=== PATIENT | male | born 2000 | race Caucasian/White ===

== ENCOUNTER 2023-09-17 09:31 | Emergency (ER) | payer BC, SELFPAY ==
[2023-09-17 09:33] VITALS: BP 131/57
--- NOTE | 2023-09-17 10:57 | ED.GENMED ---
Addendum entered and electronically signed by Tegan Arnold PA-C 09/17/23 15:12:
Patient called today around 3 PM on 09/17/23 today in follow-up to today's visit. We did discuss possible short course of antibiotics to cover for potential infection considering delayed closure of the wound. However, he was discharged prior to
sending the antibiotic. I spoke to him on the phone and advised patient that I will start a short course of Keflex for 3 days. He is aware of plan. Prescription sent to his pharmacy.
Original Note:
History of Present Illness
<Tegan Arnold PA-C - Last Filed: 09/17/23 11:12>
General
Chief Complaint: Skin Surface Trauma
Source: patient
Exam Limitations: none
Time Seen by Provider: 09/17/23 09:36
Nursing documentation reviewed up to this point in time: agreed with
Travel History
Have you had any contact with someone who has COVID-19?: No
Do you have any symptoms of coronavirus? Fever > 100 degrees, chills, cough, shortness of breath, sore throat, loss of taste or smell, muscle aches, or headache?: No
History of Present Illness
History of Present Illness:
This is a 23-year-old male presenting emergency department today with a laceration above his right eyebrow. This injury occurred yesterday around 3 PM. 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
and subsequently hit heads with his opponent. Patient states that he initially felt fine but then one of his fellow coaches noticed he was bleeding. He states at the time of the injury, they placed Steri-Strips and cleaned out the wound
thoroughly. Patient did not originally present to the emergency department at the time because he thought that it would heal on its own, however his parents encouraged him to to come in today. Patient states that when he had his injury, he not lose
consciousness, and feels well now. He denies dizziness, lightheadedness, nausea, vomiting, changes to his vision, changes to his hearing, eye pain, eyebrow pain.
Past History
<Tegan Arnold PA-C - Last Filed: 09/17/23 11:12>
Past History
ED Past Medical History: None
ED Past Surgical History: None
Social History
Tobacco: Non-smoker
Alcohol: None
Drug: None
Review of Systems
<Tegan Arnold PA-C - Last Filed: 09/17/23 11:12>
Review of Systems
All Other Systems: ROS reviewed and negative except as documented in HPI and ROS
Phy Exam
<Tegan Arnold PA-C - Last Filed: 09/17/23 11:12>
Physical Exam
Physical Exam:
General: Patient is well-appearing in no acute distress.
Skin: There is a 1 cm laceration above the right eyebrow. It is not actively bleeding. There is a small area of ecchymosis on the right eyelid.
Head: No palpable hematomas on the scalp
Eyes: No conjunctival injection. Pupils equal round and reactive to light, no nystagmus.
Cardiac: regular rate
Pulm: normal respiratory effort
Musculoskeletal: no bony tenderness to palpation of the frontal bones, zygomatic bone.
Neuro: AAOx3. CN II-XII intact.
Course
<Tegan Arnold PA-C - Last Filed: 09/17/23 11:12>
Vital Signs
Initial and Last Documented VS:
Initial Vital Signs
Temp Pulse Resp BP Pulse Ox
98.5 F 54 16 131/57 100
09/17/23 09:33 09/17/23 09:33 09/17/23 09:33 09/17/23 09:33 09/17/23 09:33
Last Documented Vital Signs
Temp Pulse Resp BP Pulse Ox
98.5 F 54 16 131/57 100
09/17/23 09:33 09/17/23 09:33 09/17/23 09:33 09/17/23 09:33 09/17/23 09:33
<Pako Andrade DO - Last Filed: 09/17/23 11:14>
Vital Signs
Initial and Last Documented VS:
Initial Vital Signs
Temp Pulse Resp BP Pulse Ox
98.5 F 54 16 131/57 100
09/17/23 09:33 09/17/23 09:33 09/17/23 09:33 09/17/23 09:33 09/17/23 09:33
Last Documented Vital Signs
Temp Pulse Resp BP Pulse Ox
98.5 F 54 16 131/57 100
09/17/23 09:33 09/17/23 09:33 09/17/23 09:33 09/17/23 09:33 09/17/23 09:33
Procedures
<Tegan Arnold PA-C - Last Filed: 09/17/23 11:12>
Laceration Closure
Right Eye brow:
Status of Wound: clean
Size of Wound in cm: 1
Description of Wound Edges: sharp
Preparation: cleaned with saline
Revision/Debridement: routine- no revision
Wound exploration: explored to base- no FB
Type of Closure: single layer closure
Skin Closure Material: 5-0 prolene
Number of sutures: 2
Additional information:
Patient tolerated procedure well
<Tegan Arnold PA-C - Last Filed: 09/17/23 11:12>
MDM/Problems Addressed
Differential Diagnosis Includes:
Differentials include simple abrasion, laceration, hematoma, musculoskeletal sprain/strain, concussion
MDM/Problems Addressed:
eyebrow laceration
Chronic conditions affecting care:
n/a
Acute Exacerbation and/or Progression of Chronic Illness:
n/a
<Tegan Arnold PA-C - Last Filed: 09/17/23 11:12>
*Pulse Oximetry
Patient hypoxic: no
*Critical Care Note
Total Time (30-74mins, 75-104mins- exclusive of procedures): Not Applicable
Data Reviewed
Review of Other/Old Records Reveals: Records (Reviewed ER physician documentation from 09/08/2021, reviewed ER physician documentation from 07/06/2021)
Source: patient
<Tegan Arnold PA-C - Last Filed: 09/17/23 11:12>
Patient Management
Escalation/DeEscalation of care consider admission/obs:
23-year-old male presenting emergency department today with a laceration above his right eyebrow. This occurred when he hit his head on another wrestler's head. He denies any loss of consciousness, nausea, vomiting, dizziness, headache.
Unremarkable neurological exam. Imaging not indicated at this time. While the laceration occurred yesterday, the decision was made to close the wound with stitches for better cosmetic healing. Patient will follow-up with his primary care provider
to have the stitches removed. Patient medically stable for discharge at this time.
ED Attending Note
<Tegan Arnold PA-C - Last Filed: 09/17/23 11:12>
-
Portions of this chart may have been created with voice recognition software.� Occasional wrong word or��sound alike� substitutions may have occurred due to the inherent limitations of voice recognition software.
<Pako Andrade DO - Last Filed: 09/17/23 11:14>
ED Attending Note
Patient seen and examined by attending physician: Yes
I performed the substantive portion of visit, reviewed & personally made and approve the management plan that is documented in note by myself or ZORAIDA.: Yes
I performed a history and physical exam of patient and discussed management with resident, I reviewed resident's note and agree with documented findings and plan of care.: Yes
ED Attending Note:
I evaluated the patient at bedside. The patient does have a superficial laceration that does spread apart about 2 mm�for cosmetic reason, will repair. I did clean with saline. His tetanus status is up-to-date. No concerning neurologic
findings/symptoms.
Discharge Plan
Departure
Patient Disposition: Home (Routine Discharge)
Date of Disposition: 09/17/23
Time of Disposition: 10:52
Patient with high blood pressure during this ER visit?: Yes
Condition: Good
Discharge Problem:
Laceration of eyebrow
Instructions: Laceration Repair With Stitches (DC), BLOOD PRESSURE
Referrals:
Mony Sosa DO [Family Provider] -
Activity Restrictions/Additional Instructions:
Please keep the wound warm and dry for 24 hours. After 24 hours, you may clean the wound with mild soap and water. You can report to your family doctor to have the stitches removed in 4 days.
Please return emergency department should you develop fevers or chills, surrounding redness around the wound, pus drainage from the wound, or other concerning symptoms.
Interventions
Interventions:
*Risk Screen - Suicide Last Done: 09/17/23 09:33
*General Assessment Last Done: 09/17/23 09:33
*Neglect/Abuse Screening Last Done: 09/17/23 09:33
ED- Fall Risk Assessment Last Done: 09/17/23 10:08
*ED COVID-19 Vaccine History Last Done: 09/17/23 09:33
*Nursing Disposition Last Done: 09/17/23 11:07
ED-Skin Assessment Last Done: 09/17/23 10:07
Discharge Date and Time
Discharge Date/Time: 09/17/23 11:00
--- NOTE | 2023-09-17 11:06 | EDRN ---
Reviewed discharge instructions with patient. Verbalized understanding. Ambulated with steady gait to the lobby.
== END 2023-09-17 11:00 | disposition home or self-care (01) ==
LOC: EMR 09:31
PROVIDERS: EMERGENCY PHYSICIAN Emergency Medicine; FAMILY PHYSICIAN Internal Medicine
DX: S01.111A Laceration without foreign body of right eyelid and periocular area, initial encounter (principal); W51.XXXA Accidental striking against or bumped into by another person, initial encounter; R03.0 Elevated blood-pressure reading, without diagnosis of hypertension
CPT/HCPCS: 99282; 12011

== ENCOUNTER 2024-09-27 15:12 | Emergency (ER) | payer BC, SELFPAY ==
[2024-09-27 15:13] VITALS: BP 135/79
--- NOTE | 2024-09-27 16:37 | ED.GENMED ---
History of Present Illness
General
Chief Complaint: Head Injury
Source: patient
Exam Limitations: none
Time Seen by Provider: 09/27/24 16:31
Nursing documentation reviewed up to this point in time: agreed with
History of Present Illness
History of Present Illness:
This is a 24-year-old male with no past medical history who presents emergency department today with concerns of a laceration lateral to his right eye. He reports that this morning at 12:00 am he turned his head quickly to look over his right
shoulder and he did not realize the door was open and he hit his head on the door. Patient states that he noted some bleeding from a cut on the side of his head and he subsequently went to sleep. He did not fall to the ground or hit his head on
the ground. He denies any neck pain. He states that he has no pain in his right eye and no visual changes in his right eye. He has no headaches, no dizziness, no nausea, no vomiting. He did not loose consciousness. Patient is up to date on his
tetanus.
Past History
Past History
ED Past Medical History: None
ED Past Surgical History: None
Social History
Tobacco: Non-smoker
Alcohol: None
Drug: None
Review of Systems
Review of Systems
All Other Systems: ROS reviewed and negative except as documented in HPI and ROS
Phy Exam
Physical Exam
Physical Exam:
General: Patient is well appearing and in no acute distress; non-toxic
Skin: Warm and dry, 1.5 cm laceration noted to lateral aspect of right eye near temporal area. Bleeding controlled.
Head: Small right sided hematoma overlying temporal area. TMJ joints intact bilaterally.
Eyes: Sclera non-icteric. EOMs intact. No signs of trauma to the globes. PERRLA.
Cardiac: Regular rate
Pulm: Normal respiratory effort
Musculoskeletal: No tenderness to palpation of the facial bones.
Neuro: CN II-XII intact, no focal neurologic deficits.
Psychiatric: Appropriate mood and affect.
Course
Vital Signs
Initial and Last Documented VS:
Initial Vital Signs
Temp Pulse Resp BP Pulse Ox
98 F 78 16 135/79 98
09/27/24 15:13 09/27/24 15:13 09/27/24 15:13 09/27/24 15:13 09/27/24 15:13
Last Documented Vital Signs
Temp Pulse Resp BP Pulse Ox
98 F 78 16 135/79 98
09/27/24 15:13 09/27/24 15:13 09/27/24 15:13 09/27/24 15:13 09/27/24 15:13
Procedures
Laceration Closure
Right Temporal:
Status of Wound: clean
Size of Wound in cm: 1.5
Preparation: cleaned with saline
Type of Closure: Dermabond-skin glue
MDM/Problems Addressed
Differential Diagnosis Includes:
abrasion, laceration, concussion
MDM/Problems Addressed:
24-year-old male presents emergency department today with concerns of a laceration noted to the right temporal area/lateral eye. He states that late this morning before going to bed to look over her shoulder and when he turned, he was onto the
door. He is a small laceration noted to the right temporal area with a small hematoma. The wound was cleaned with saline and Dermabond was applied to the wound. Considering patient is well-appearing in no acute distress has no focal neurologic
deficits not lose consciousness has no headaches dizziness or nausea vomiting, no indication for CT imaging of the head at this time. Considering patient has no eye pain, no visual changes, sclera are clear bilaterally, do not suspect injury to the
globe or any corneal abrasion. Patient is stable for discharge.
Chronic conditions affecting care:
N/A
Acute Exacerbation and/or Progression of Chronic Illness:
N/A
*Pulse Oximetry
Patient hypoxic: no
*Critical Care Note
Total Time (30-74mins, 75-104mins- exclusive of procedures): Not Applicable
Data Reviewed
Review of Other/Old Records Reveals: Records (Reviewed ER physician documentation from 09/17/2023 for patient was seen for a laceration of the eyebrow)
Source: patient and records
ED Attending Note
-
Portions of this chart may have been created with voice recognition software.� Occasional wrong word or��sound alike� substitutions may have occurred due to the inherent limitations of voice recognition software.
Discharge Plan
Departure
Patient Disposition: Home (Routine Discharge)
Date of Disposition: 09/27/24
Time of Disposition: 16:52
Patient with high blood pressure during this ER visit?: Yes
Discharge Problem:
Simple laceration of face
Instructions: Laceration Repair With Glue (DC), Wound Care (DC), BLOOD PRESSURE
Prescriptions:
No Action
cephalexin 500 mg capsule
500 mg PO TID Qty: 10 0RF
Rx Instructions:
Please take one tablet three times a day for 3 days with food.
Activity Restrictions/Additional Instructions:
Please keep the wound dry for 24 hours. Please do not apply hydrogen peroxide, rubbing alcohol, petroleum jelly, bacitracin or Neosporin to the wound as this will dissolve the glue.
Please follow up with your primary care provider.
PLEASE RETURN TO THE EMERGENCY DEPARTMENT SHOULD YOU DEVELOP DIZZINESS, LOSS OF CONSCIOUSNESS, VISUAL LOSS, EYE PAIN, SEVERE SUDDEN ONSET HEADACHE, NECK PAIN, NAUSEA AND VOMITING, OR ANY OTHER SIGNS OR SYMPTOMS WORRISOME TO YOU.
Interventions
Interventions:
*Risk Screen - Suicide Last Done: 09/27/24 15:14
*General Assessment Last Done: 09/27/24 15:41
*Neglect/Abuse Screening Last Done: 09/27/24 15:14
*ED COVID-19 Vaccine History Last Done: 09/27/24 15:41
*Nursing Disposition Last Done: 09/27/24 17:26
ED- Neurological Assessment Last Done: 09/27/24 15:41
ED-Skin Assessment Last Done: 09/27/24 15:41
Discharge Date and Time
Discharge Date/Time: 09/27/24 17:27
Print Language: AMHARIC
== END 2024-09-27 17:27 | disposition home or self-care (01) ==
LOC: EMR 15:12
PROVIDERS: EMERGENCY PHYSICIAN Emergency Medicine
DX: S01.81XA Laceration without foreign body of other part of head, initial encounter (principal); S00.83XA Contusion of other part of head, initial encounter; W22.09XA Striking against other stationary object, initial encounter; R03.0 Elevated blood-pressure reading, without diagnosis of hypertension
CPT/HCPCS: 99282; 12011